=== PATIENT | female | born 1960 | race African-American/Black ===

== ENCOUNTER → 2017-09-19 | Day surgery (SDC) | payer OTHER, MEDICARE ==
[~2017-09-19] MED LIST: DEXAMETHASONE SOD PHOS 4 MG/ML VIAL; EPINEPHrine HCL (1:1000) 1 MG/ML VIAL; LACTATED RINGER'S 1000 ML INJ 1,000 ML; MIDAZOLAM HCL 2 MG/2 ML VIAL; MOXIFLOXACIN 0.5% OPHT SOLN 3 ML BTL; ONDANSETRON HCL 4 MG/2 ML VIAL IV PUSH; PHENYLEPHRINE HCL 2.5 % OPTH SOLN 15 ML BTL; PROPOFOL 200 MG/20 ML AMP IV; SODIUM CHLORIDE 0.9% INJ 10 ML; TETRACAINE 0.5% OPTH SOLN 15 ML BTL; TOBRAMYCIN/DEXAMETHASONE OPTH OINT 3.5 GM TUBE; TRIAMCINOLONE ACETONIDE 40 MG/ML VIAL; ceFAZolin INJ 1,000 MG VIAL; prednisoLONE ACETATE 1% OPHT SUSP 5 ML BTL
== END | disposition home or self-care (01) ==
LOC: ESDC 09:30
DX: E11.3532 Type 2 diabetes mellitus with proliferative diabetic retinopathy with traction retinal detachment not involving the macula, left eye (principal); H40.9 Unspecified glaucoma; Z79.4 Long term (current) use of insulin
CPT/HCPCS: 00145; 82948